=== PATIENT | male | born 1965 | race Caucasian/White ===

== ENCOUNTER 2019-12-07 10:10 | Inpatient (IN) ==
[2019-12-07] MEDS ORDERED: IOPAMIDOL 100 ML BOTTLE IV ONE (10:11)
[2019-12-07] MEDS ORDERED: ONDANSETRON 4 MG/2 ML VIAL IV ONE (10:35)
[2019-12-07] MEDS ORDERED: 0.9 % SODIUM CHLORIDE 1,000 ML IV ONE ×2 (10:35→16:52)
[2019-12-07] MEDS ORDERED: LORazepam 2 MG/ML VIAL IV ONE ×4 (10:35→12:11)
--- NOTE | 2019-12-07 10:42 | Emergency Department Note ---
Alcohol HPI General Chief Complaint: Alcohol Stated Complaint: intoxication Time Seen by Provider: 12/07/19 10:19 Source: other Mode of arrival: wheelchair History of Present Illness HPI Narrative: Narrative: This patient is brought into the emergency room by his [facility] therapist. He apparently has been binge drinking for the last 2 days. Patient is unable to give me much history himself. Therapist says he saw him at the [facility] 2 days ago when he was sober. When he went to his apartment he had empty bottles of vodka and empty cases of beer. Therapist states that the patient has been an alcoholic in the past and was sober for 9 years but then started drinking about 2 weeks ago. He was hospitalized at [facility] 2 weeks ago for decreased level of consciousness and was felt to all be due to alcohol intoxication. At this time the patient is kind of groaning and moving about and not being completely cooperative. Related Data Home Medications Medication Instructions Recorded Confirmed clonidine HCl 0.1 mg PO BID 05/11/15 05/11/15 mirtazapine [Remeron] 60 mg PO DAILY 05/11/15 05/11/15 Allergies Allergy/AdvReac Type Severity Reaction Status Date / Time No Known Drug Allergies Allergy Verified 05/11/15 14:46 Review of Systems ROS ROS Narrative: Narrative: Limitations: ROS unobtainable due to patients medical condition [facility] Narrative Patient History Narrative: Narrative: Medical/Surgical/Family History All Active Problems (Updated 12/07/19 @ 17:28 by Adrian Fernandez MD) Alcoholic intoxication (Acute) Sepsis (Acute) Alcoholism (Acute) Dyspepsia (Acute) Medical History (Updated 12/07/19 @ 17:28 by Adrian Fernandez MD) Alcoholism (Acute) Bipolar disorder (Acute) Depression as late effect of cerebrovascular accident (CVA) (Acute) Dyspepsia (Acute) Hypertriglyceridemia (Acute) PTSD (post-traumatic stress disorder) (Acute) Tonsillectomy planned (Acute) Social History Smoking Status: Current every day smoker Exam Narrative Narrative: Narrative: In general the patient is moaning and groaning in bed. He is restrainable by voice. The patient has been incontinent of urine and I am unable to obtain a history of seizure in this patient. Head Head: atraumatic, normocephalic and normal inspection Eye Eye: Present conjunctival injection ENT ENT: Present mucous membranes moist Chest Chest: Present normal inspection and symmetric chest wall rise Respiratory Respiratory: Present normal lung sounds bilaterally; Absent respiratory distress, rales/crackles and wheezes Cardiovascular Cardiovascular: Present regular rate, normal rhythm and normal heart sounds Adbominal Abdominal: Present soft; Absent distention and tenderness Extremities Extremities: Present normal inspection Skin Skin: Present warm and dry; Absent diaphoresis Course Vital Signs Vital signs: Vital Signs Temperature 97 F 12/07/19 10:10 Pulse Rate 71 12/07/19 10:10 Respiratory Rate 25 H 12/07/19 10:10 Pulse Oximetry (%) 95 12/07/19 10:10 Temperature 97 F 12/07/19 10:10 Pulse Rate 79 12/07/19 16:31 Respiratory Rate 20 12/07/19 13:37 Blood Pressure 93/67 12/07/19 16:31 Pulse Oximetry (%) 90 12/07/19 16:31 MDM MDM Narrative Medical decision making narrative: Narrative: This patient was quite intoxicated when he first arrived also incontinent of urine. He required quite a bit of Ativan for sedation in order to do CT scans. Also gave him 10 mg of Zyprexa IM at one point. His lactic acid came back at 4.8 and so we initiated a septic work-up with blood cultures and covered him with antibiotics. He was given Levaquin doxycycline and vancomycin. His CPK was again elevated over 2600 and this was elevated as well when he was at [facility] a week ago. Creatinine is 1.0. He did receive at least 2 L of normal saline here in the emergency room I discussed the case with Dr. Brown and he will be admitted to the hospital. Lab Data Lab results reviewed: Yes I reviewed the patient's lab results. Result diagrams: 12/07/19 11:18 12/07/19 11:18 Labs: Lab Results 12/07/19 12/07/19 12/07/19 Range/Units 11:18 11:18 11:18 WBC 10.1 (4.50-11.00) K/mcL RBC 4.37 L (4.63-6.08) M/mcL Hgb 13.3 L (13.7-17.5) g/dL Hct 37.7 L (40.1-51.0) % MCV 86.3 (80.0-100.0) fL MCH 30.4 (26.0-34.0) pg MCHC 35.3 (31.0-36.0) g/dL RDW 12.7 (11.5-14.5) % Plt Count 272 (140-440) K/mcL MPV 8.8 (7.4-10.4) fL Gran % 74.2 (38.0-78.0) % Lymph % (Auto) 16.3 (15.5-49.0) % [place] % (Auto) 7.6 (1.0-12.0) % Eos % (Auto) 1.7 (0.0-7.0) % Baso % (Auto) 0.2 (0.0-2.0) % Gran # 7.51 (1.80-8.00) K/mcL Lymph # (Auto) 1.65 (1.50-4.80) K/mcL [place] # (Auto) 0.77 (0.10-0.90) K/mcL Eos # (Auto) 0.17 (0.00-0.70) K/mcL Baso # (Auto) 0.02 (0.00-0.30) K/mcL VBG Lactic Acid 4.8 H* (0.5-2.0) mmol/L Sodium 128 L (133-145) mmol/L Potassium 3.8 (3.3-5.1) mmol/L Chloride 89 L (96-108) mmol/L Carbon Dioxide 17 L (22-30) mmol/L Anion Gap 22.0 H (8-16) BUN 13 (6-20) mg/dl Creatinine 1.0 (0.7-1.2) mg/dl GFR Calculation 84 Glucose 138 H (70-105) mg/dL Calcium 8.9 (8.6-10.4) mg/dl Total Bilirubin 0.5 (0.0-1.0) mg/dL AST 86 H (0-37) U/l ALT 68 H (0-40) U/l Alkaline Phosphatase 88 (39-117) U/L Ammonia (16-60) umol/L Total Creatine Kinase (24-195) IU/L Total Protein 7.1 (5.9-8.4) gm/dL Albumin 4.5 (3.2-5.2) gm/dL Globulin 2.6 (2.2-3.7) gm/dL Albumin/Globulin Ratio 1.7 (1.0-2.3) Lipase 22 (7-60) U/L Urine Color Urine Appearance Urine pH (5.0-9.0) Ur Specific [place] (1.000-1.035) Urine Protein (NEG) mg/dL Urine Glucose (UA) (NEG) mg/dL Urine Ketones (NEG) mg/dL Urine Occult Blood (<0.03) mg/dL Urine Nitrate (NEG) Urine Bilirubin (NEG) mg/dL Urine Urobilinogen (NEG) mg/dL Ur Leukocyte Esterase (NEG) /uL Urine RBC (0-1) /hpf Urine WBC (0-4) /hpf Ur Squamous Epith Cells (0-4) /hpf Urine Bacteria (0) /hpf Ur Culture Indicated? Urine Opiates Screen (NONDETECTED) Ur Oxycodone Screen (NONDETECTED) Urine Methadone Screen (NONDETECTED) Ur Barbiturates Screen (NONDETECTED) Ur Phencyclidine Scrn (NONDETECTED) Ur Amphetamines Screen (NONDETECTED) U Benzodiazepines Scrn (NONDETECTED) Urine Cocaine Screen (NONDETECTED) U Marijuana (THC) Screen (NONDETECTED) Ethyl Alcohol (<0.010) gm/dl 12/07/19 12/07/19 12/07/19 Range/Units 11:18 11:18 12:28 WBC (4.50-11.00) K/mcL RBC (4.63-6.08) M/mcL Hgb (13.7-17.5) g/dL Hct (40.1-51.0) % MCV (80.0-100.0) fL MCH (26.0-34.0) pg MCHC (31.0-36.0) g/dL RDW (11.5-14.5) % Plt Count (140-440) K/mcL MPV (7.4-10.4) fL Gran % (38.0-78.0) % Lymph % (Auto) (15.5-49.0) % [place] % (Auto) (1.0-12.0) % Eos % (Auto) (0.0-7.0) % Baso % (Auto) (0.0-2.0) % Gran # (1.80-8.00) K/mcL Lymph # (Auto) (1.50-4.80) K/mcL [place] # (Auto) (0.10-0.90) K/mcL Eos # (Auto) (0.00-0.70) K/mcL Baso # (Auto) (0.00-0.30) K/mcL VBG Lactic Acid (0.5-2.0) mmol/L Sodium (133-145) mmol/L Potassium (3.3-5.1) mmol/L Chloride (96-108) mmol/L Carbon Dioxide (22-30) mmol/L Anion Gap (8-16) BUN (6-20) mg/dl Creatinine (0.7-1.2) mg/dl GFR Calculation Glucose (70-105) mg/dL Calcium (8.6-10.4) mg/dl Total Bilirubin (0.0-1.0) mg/dL AST (0-37) U/l ALT (0-40) U/l Alkaline Phosphatase (39-117) U/L Ammonia 39 (16-60) umol/L Total Creatine Kinase 2662 H (24-195) IU/L Total Protein (5.9-8.4) gm/dL Albumin (3.2-5.2) gm/dL Globulin (2.2-3.7) gm/dL Albumin/Globulin Ratio (1.0-2.3) Lipase (7-60) U/L Urine Color Urine Appearance Urine pH (5.0-9.0) Ur Specific [place] (1.000-1.035) Urine Protein (NEG) mg/dL Urine Glucose (UA) (NEG) mg/dL Urine Ketones (NEG) mg/dL Urine Occult Blood (<0.03) mg/dL Urine Nitrate (NEG) Urine Bilirubin (NEG) mg/dL Urine Urobilinogen (NEG) mg/dL Ur Leukocyte Esterase (NEG) /uL Urine RBC (0-1) /hpf Urine WBC (0-4) /hpf Ur Squamous Epith Cells (0-4) /hpf Urine Bacteria (0) /hpf Ur Culture Indicated? Urine Opiates Screen (NONDETECTED) Ur Oxycodone Screen (NONDETECTED) Urine Methadone Screen (NONDETECTED) Ur Barbiturates Screen (NONDETECTED) Ur Phencyclidine Scrn (NONDETECTED) Ur Amphetamines Screen (NONDETECTED) U Benzodiazepines Scrn (NONDETECTED) Urine Cocaine Screen (NONDETECTED) U Marijuana (THC) Screen (NONDETECTED) Ethyl Alcohol 0.286 H (<0.010) gm/dl 12/07/19 12/07/19 Range/Units 15:08 15:08 WBC (4.50-11.00) K/mcL RBC (4.63-6.08) M/mcL Hgb (13.7-17.5) g/dL Hct (40.1-51.0) % MCV (80.0-100.0) fL MCH (26.0-34.0) pg MCHC (31.0-36.0) g/dL RDW (11.5-14.5) % Plt Count (140-440) K/mcL MPV (7.4-10.4) fL Gran % (38.0-78.0) % Lymph % (Auto) (15.5-49.0) % [place] % (Auto) (1.0-12.0) % Eos % (Auto) (0.0-7.0) % Baso % (Auto) (0.0-2.0) % Gran # (1.80-8.00) K/mcL Lymph # (Auto) (1.50-4.80) K/mcL [place] # (Auto) (0.10-0.90) K/mcL Eos # (Auto) (0.00-0.70) K/mcL Baso # (Auto) (0.00-0.30) K/mcL VBG Lactic Acid (0.5-2.0) mmol/L Sodium (133-145) mmol/L Potassium (3.3-5.1) mmol/L Chloride (96-108) mmol/L Carbon Dioxide (22-30) mmol/L Anion Gap (8-16) BUN (6-20) mg/dl Creatinine (0.7-1.2) mg/dl GFR Calculation Glucose (70-105) mg/dL Calcium (8.6-10.4) mg/dl Total Bilirubin (0.0-1.0) mg/dL AST (0-37) U/l ALT (0-40) U/l Alkaline Phosphatase (39-117) U/L Ammonia (16-60) umol/L Total Creatine Kinase (24-195) IU/L Total Protein (5.9-8.4) gm/dL Albumin (3.2-5.2) gm/dL Globulin (2.2-3.7) gm/dL Albumin/Globulin Ratio (1.0-2.3) Lipase (7-60) U/L Urine Color Colorless Urine Appearance Clear Urine pH 7.0 (5.0-9.0) Ur Specific [place] 1.003 (1.000-1.035) Urine Protein Neg (NEG) mg/dL Urine Glucose (UA) Negative (NEG) mg/dL Urine Ketones Neg (NEG) mg/dL Urine Occult Blood Neg (<0.03) mg/dL Urine Nitrate Neg (NEG) Urine Bilirubin Neg (NEG) mg/dL Urine Urobilinogen Neg (NEG) mg/dL Ur Leukocyte Esterase Neg (NEG) /uL Urine RBC 0 (0-1) /hpf Urine WBC < 1 (0-4) /hpf Ur Squamous Epith Cells 0 (0-4) /hpf Urine Bacteria 0 (0) /hpf Ur Culture Indicated? No Urine Opiates Screen None detected (NONDETECTED) Ur Oxycodone Screen None detected (NONDETECTED) Urine Methadone Screen None detected (NONDETECTED) Ur Barbiturates Screen None detected (NONDETECTED) Ur Phencyclidine Scrn None detected (NONDETECTED) Ur Amphetamines Screen None detected (NONDETECTED) U Benzodiazepines Scrn None detected (NONDETECTED) Urine Cocaine Screen None detected (NONDETECTED) U Marijuana (THC) Screen None detected (NONDETECTED) Ethyl Alcohol (<0.010) gm/dl Radiology Data Radiology results reviewed: Yes I reviewed the patient's radiology results. Discharge Plan Patient/Caregiver Discharge Instructions Pt seen by DATA TYPIST/PA only: No Clinical Impression: Alcoholism, Alcoholic intoxication, Sepsis Patient Disposition: Xfer As Outpt/Obs ([facility]) Follow up with: No,PCP [Primary Care Provider] - Prescriptions: No Action clonidine HCl 0.1 MG Tablet 0.1 mg PO BID RF: 0 mirtazapine [Remeron] 30 MG Tablet 60 mg PO DAILY RF: 0
[2019-12-07 12:12] LABS: Basophils # (Auto) 0.02 K/mcL (0.00-0.30); Basophils % (Auto) 0.2 % (0.0-2.0); Eosinophils # (Auto) 0.17 K/mcL (0.00-0.70); Eosinophils % (Auto) 1.7 % (0.0-7.0); Granulocytes % (Auto) 74.2 % (38.0-78.0); Hematocrit 37.7 % (40.1-51.0); Hemoglobin 13.3 g/dL (13.7-17.5); Lymphocytes # (Auto) 1.65 K/mcL (1.50-4.80); Lymphocytes % (Auto) 16.3 % (15.5-49.0); Mean Cell Volume 86.3 fL (80.0-100.0); Mean Corpuscular HGB Conc 35.3 g/dL (31.0-36.0); Mean Platelet Volume 8.8 fL (7.4-10.4); Monocytes # (Auto) 0.77 K/mcL (0.10-0.90); Monocytes % (Auto) 7.6 % (1.0-12.0); Platelet Count 272 K/mcL (140-440); RBC 4.37 M/mcL (4.63-6.08); Red Cell Distribution Width 12.7 % (11.5-14.5); WBC 10.1 K/mcL (4.50-11.00)
[2019-12-07 12:25] LABS: Alcohol,Blood 0.286 gm/dl (<0.010)
[2019-12-07 12:32] LABS: ALT/SGPT 68 U/l (0-40); AST/SGOT 86 U/l (0-37); Albumin 4.5 gm/dL (3.2-5.2); Albumin/Globulin Ratio 1.7 (1.0-2.3); Alkaline Phosphatase 88 U/L (39-117); Bilirubin,Total 0.5 mg/dL (0.0-1.0); Blood Urea Nitrogen 13 mg/dl (6-20); Calcium 8.9 mg/dl (8.6-10.4); Carbon Dioxide 17 mmol/L (22-30); Chloride 89 mmol/L (96-108); Globulin 2.6 gm/dL (2.2-3.7); Glomerular Filtration Rate 84; Glucose 138 mg/dL (70-105)
[2019-12-07 12:43] LABS: Creatine Kinase 2662 IU/L (24-195)
[2019-12-07] MEDS ORDERED: OLANZapine 10 MG VIAL IM SCH (12:45)
[2019-12-07] MEDS ORDERED: DOXYCYCLINE 100 MG in DEXTROSE 5% IN WATER 100 ML IV ONE (13:41)
[2019-12-07] MEDS ORDERED: LEVOFLOXACIN 750 MG/150 ML BAG IV ONE (13:41)
[2019-12-07] MEDS ORDERED: VANCOMYCIN 1,000 MG in 0.9 % SODIUM CHLORIDE 250 ML IV ONE (13:41)
--- NOTE | 2019-12-07 14:49 | Cat Scan Report ---
History: Decreased level of consciousness, intoxicated TECHNIQUE: The brain was imaged without contrast at 2.5 mm intervals. Sagittal and coronal reformats were created. The radiation exposure was limited using dose reduction technology. FINDINGS: There is mild to moderate atrophy predominantly involving the frontal lobes with milder involvement in the temporal and parietal lobes. There is no evidence of infarct, hemorrhage, edema or mass effect. The ventricles are normal in size allowing for atrophy. No abnormal extra-axial fluid collection is present. The bone windows show no skull fracture. The visualized sinuses are clear. IMPRESSION: Cerebral atrophy and no acute abnormality Dr. Fernandez was called with the results Interpreted and Authenticated by: Syed Hernandez 12/07/19
--- NOTE | 2019-12-07 15:13 | Cat Scan Report ---
History: Sepsis, evaluate source technique: The patient was imaged following intravenous but no oral contrast scanning during the portal venous phase from the thoracic inlet through the symphysis pubis. Sagittal and coronal reformats were created. The radiation exposure was limited using dose reduction technology. FINDINGS: CHEST: Lungs are clear without evidence of pneumonia or aspiration. Central airways are normal. There is no pleural effusion or adenopathy. The heart size is normal. The aorta is normal in caliber. Degenerative disc disease and arthritis are present in the lower cervical spine. There is a scoliotic curvature with the apex to the left in the upper thoracic spine. Abdomen and pelvis: There is moderate generalized fatty infiltration of liver. The liver is normal in size and homogeneous, without evidence of hepatitis or cirrhosis. The gallbladder and bile ducts are normal. There is no evidence of pancreatitis. The spleen and adrenals are normal in size and homogeneous. Kidneys are normal in size shape and contour and there is no mass, cyst, calculus, hydronephrosis or inflammation. The aorta and inferior vena cava are normal and there are no plaques in the aorta. The bowel pattern is normal without evidence of diverticulitis or colitis. No small bowel obstruction is present. The appendix is noninflamed. No abnormality seen in the bladder prostate or seminal vesicles. No ascites or abscess are present. There are moderate old anterior wedge compression fractures involving the superior endplates of L1 and L2. There is no paraspinal hematoma or edema. Severe spinal canal stenosis is present at L4-5 with moderate spinal canal stenosis at L3-4 due to degenerative changes. IMPRESSION: Normal chest Fatty infiltration of the liver No acute abnormality in the chest abdomen or pelvis Dr. Fernandez was called with the results Interpreted and Authenticated by: Syed Hernandez 12/07/19
[2019-12-07 15:40] LABS: Appearance,Urine CLEAR; Bacteria,Urine 0 /hpf (0); Bilirubin,Urine NEG (NEG); Color,Urine COLORLESS; Culture Indicated,Urine NO; Glucose,Urine (UA) NEGATIVE (NEG); Ketones,Urine NEG (NEG); Leukocyte Esterase,Urine NEG /uL (NEG); Nitrate,Urine NEG (NEG); Protein,Urine NEG (NEG); Specific Gravity,Urine 1.003 (1.000-1.035); Urine Blood NEG mg/dL (<0.03); Urine RBC 0 /hpf (0-1); Urine Squamous Epithelial Cell 0 /hpf (0-4); Urine WBC < 1 /hpf (0-4); Urobilinogen,Urine NEG (NEG)
[2019-12-07 15:45] LABS: Amphetamine Screen,Urine NONE DETECTED (NONDETECTED); Barbiturate Screen,Urine NONE DETECTED (NONDETECTED); Benzodiazepines Screen,Urine NONE DETECTED (NONDETECTED); Cannabinoid Screen,Urine NONE DETECTED (NONDETECTED); Cocaine Screen,Urine NONE DETECTED (NONDETECTED); Opiate Screen,Urine NONE DETECTED (NONDETECTED); Oxycodone, Urine Screen NONE DETECTED (NONDETECTED); Phencyclidine Screen,Urine NONE DETECTED (NONDETECTED)
[2019-12-07] MEDS ORDERED: ONDANSETRON 4 MG/2 ML VIAL IV PRN (17:48)
[2019-12-07] MEDS ORDERED: THIAMINE 100 MG in 0.9 % SODIUM CHLORIDE 50 ML IV ONE (17:56)
[2019-12-07] MEDS ORDERED: LORazepam 2 MG/ML VIAL IV PRN (17:56)
[2019-12-07] MEDS ORDERED: 0.9 % SODIUM CHLORIDE 1,000 ML IV SCH (18:00)
--- NOTE | 2019-12-07 18:36 | Internal Med History&Physical ---
HPI History of Present Illness Patient information: Note initiated : 12/07/19 at 6:05 pm Service Date, if different from initiated Date: [] Patient: Arnaud Umanzor a 54 y/o M admitted on for intoxication. Chief Complaint: [] Chief complaint: Alcohol intoxication History of present illness: Mr. Umanzor is a 54 year old M with a history of occasional alcohol binge who was brought to the ER due to acute alcohol intoxication. As per patient, he drank 36 bottles of beer this morning. He was an alcoholic in the past and had been sober for 9 years but then started drinking about 2 weeks ago. He was hospitalized at [facility] 2 weeks ago for AMS and acute alcohol intoxication. During that time, alcohol level was greater than 300. CT of head and was negative. As per hx from [facility] that the patient lives at home with mother who has a hx of rare binge alcohol. In the ER, CT of the head, chest, abdomen and pelvis were negative. lactic acid 4.8. He was given Levaquin doxycycline and vancomycin. 2L NS was given. When I saw this patient in the ER, he was sleeping in the bed but he woke up when I called him. He seemed to answer questions appropriately. Denied medical complaints. No headache, dizziness, chest pain, shortness of breath, fever, chills, nausea, vomiting, abdominal pain, or dysuria. 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) Dyspepsia (Acute) Hypertriglyceridemia (Acute) PTSD (post-traumatic stress disorder) (Acute) Tonsillectomy planned (Acute) Social History smoking status: Current every day smoker MEDS/ALLERGIES Home Medications and Allergies Home Medications Medication Instructions Recorded Confirmed Type clonidine HCl 0.1 mg PO BID 05/11/15 05/11/15 History mirtazapine [Remeron] 60 mg PO DAILY 05/11/15 05/11/15 History Allergies Allergy/AdvReac Type Severity Reaction Status Date / Time No Known Drug Allergies Allergy Verified 05/11/15 14:46 EXAM Constitutional Vitals: Temp Pulse Resp BP Pulse Ox 97 F 82 20 104/92 97 12/07/19 10:10 12/07/19 17:38 12/07/19 13:37 12/07/19 17:33 12/07/19 17:38 Additional findings Additional findings: General - No acute distress Eyes - PERRLA, EOM intact ENT no rhinorrhea, no noticeable or palpable swelling, no redness or rash around throat or on face Neck supple, no JVD, no thyromegaly Respiratory: Lungs -clear, no wheezing or crackles. Cardiovascular - RRR no m/r/g, GI - Normal bowel sounds, no distended, soft. Extremeties - No edema, cyanosis or clubbing Hemo/lymphatic/immune no lymphadenopathy Neurological Alert and oriented x 3, no focal neurological deficits. Psychiatry flat affect DATA Data Completed and Pending Labs on day of discharge: Labs from last 24 hours 12/07/19 12/07/19 12/07/19 15:08 15:08 12:28 WBC RBC Hgb Hct MCV MCH MCHC RDW Plt Count MPV Gran % Lymph % (Auto) [place] % (Auto) Eos % (Auto) Baso % (Auto) Gran # Lymph # (Auto) [place] # (Auto) Eos # (Auto) Baso # (Auto) VBG Lactic Acid Sodium Potassium Chloride Carbon Dioxide Anion Gap BUN Creatinine GFR Calculation Glucose Calcium Total Bilirubin AST ALT Alkaline Phosphatase Ammonia 39 Total Creatine Kinase Total Protein Albumin Globulin Albumin/Globulin Ratio Lipase Urine Color Colorless Urine Appearance Clear Urine pH 7.0 Ur Specific [place] 1.003 Urine Protein Neg Urine Glucose (UA) Negative Urine Ketones Neg Urine Occult Blood Neg Urine Nitrate Neg Urine Bilirubin Neg Urine Urobilinogen Neg Ur Leukocyte Esterase Neg Urine RBC 0 Urine WBC < 1 Ur Squamous Epith Cells 0 Urine Bacteria 0 Ur Culture Indicated? No Urine Opiates Screen None detected Ur Oxycodone Screen None detected Urine Methadone Screen None detected Ur Barbiturates Screen None detected Ur Phencyclidine Scrn None detected Ur Amphetamines Screen None detected U Benzodiazepines Scrn None detected Urine Cocaine Screen None detected U Marijuana (THC) Screen None detected Ethyl Alcohol 12/07/19 12/07/19 12/07/19 11:18 11:18 11:18 WBC RBC Hgb Hct MCV MCH MCHC RDW Plt Count MPV Gran % Lymph % (Auto) [place] % (Auto) Eos % (Auto) Baso % (Auto) Gran # Lymph # (Auto) [place] # (Auto) Eos # (Auto) Baso # (Auto) VBG Lactic Acid 4.8 H* Sodium Potassium Chloride Carbon Dioxide Anion Gap BUN Creatinine GFR Calculation Glucose Calcium Total Bilirubin AST ALT Alkaline Phosphatase Ammonia Total Creatine Kinase 2662 H Total Protein Albumin Globulin Albumin/Globulin Ratio Lipase Urine Color Urine Appearance Urine pH Ur Specific [place] Urine Protein Urine Glucose (UA) Urine Ketones Urine Occult Blood Urine Nitrate Urine Bilirubin Urine Urobilinogen Ur Leukocyte Esterase Urine RBC Urine WBC Ur Squamous Epith Cells Urine Bacteria Ur Culture Indicated? Urine Opiates Screen Ur Oxycodone Screen Urine Methadone Screen Ur Barbiturates Screen Ur Phencyclidine Scrn Ur Amphetamines Screen U Benzodiazepines Scrn Urine Cocaine Screen U Marijuana (THC) Screen Ethyl Alcohol 0.286 H 12/07/19 12/07/19 11:18 11:18 WBC 10.1 RBC 4.37 L Hgb 13.3 L Hct 37.7 L MCV 86.3 MCH 30.4 MCHC 35.3 RDW 12.7 Plt Count 272 MPV 8.8 Gran % 74.2 Lymph % (Auto) 16.3 [place] % (Auto) 7.6 Eos % (Auto) 1.7 Baso % (Auto) 0.2 Gran # 7.51 Lymph # (Auto) 1.65 [place] # (Auto) 0.77 Eos # (Auto) 0.17 Baso # (Auto) 0.02 VBG Lactic Acid Sodium 128 L Potassium 3.8 Chloride 89 L Carbon Dioxide 17 L Anion Gap 22.0 H BUN 13 Creatinine 1.0 GFR Calculation 84 Glucose 138 H Calcium 8.9 Total Bilirubin 0.5 AST 86 H ALT 68 H Alkaline Phosphatase 88 Ammonia Total Creatine Kinase Total Protein 7.1 Albumin 4.5 Globulin 2.6 Albumin/Globulin Ratio 1.7 Lipase 22 Urine Color Urine Appearance Urine pH Ur Specific [place] Urine Protein Urine Glucose (UA) Urine Ketones Urine Occult Blood Urine Nitrate Urine Bilirubin Urine Urobilinogen Ur Leukocyte Esterase Urine RBC Urine WBC Ur Squamous Epith Cells Urine Bacteria Ur Culture Indicated? Urine Opiates Screen Ur Oxycodone Screen Urine Methadone Screen Ur Barbiturates Screen Ur Phencyclidine Scrn Ur Amphetamines Screen U Benzodiazepines Scrn Urine Cocaine Screen U Marijuana (THC) Screen Ethyl Alcohol A/P Narrative A/P Narrative: 1. Acute alcoholic intoxication Had been sober for 9 years lives at home with mother who has a hx of rare binge alcohol No hx of DT In the ER, alcohol level was 0.286 Thiamine, folic acid IVF Ativan prn will initiate CIWA protocol if needed solutions manager consult 2. AMS improved/resolved Most likely due to acute alcoholic intoxication. CT of head negative 3. Rhabdomyelitis/elevation of CK CK in the ER 2662 He was admitted to [facility] for similar problem. At that time, CK was 3400. Normal renal function Repeat CK in the morning IV fluid 4. Psychosis History include bipolar disorder, depression, PTSD, and anxiety Denies suicidal ideation Continue home medication 5. Dehydration IV fluid 6. Hyponatremia Sodium 128 in the ER IV normal saline Repeat electrolytes 7. Elevation of Lactic acid Could be due to dehydration or alcohol intoxication No evidence of infection Antibiotics was given in the ER Procalcitonin Monitor 8. DVT prophylaxis: Lovenox 9. CODE STATUS: DNR/DNI Patient declined CPR and intubation. Time Spent With Patient Time: Total time spent is greater than 50% in coordination of care (as documented) at patient's floor/unit and/or counseling patient:
[2019-12-07] MEDS ORDERED: LACTATED RINGERS 1,000 ML IV SCH (18:45)
[2019-12-07] MEDS ORDERED: THIAMINE 100 MG/ML VIAL ONE (18:50)
[2019-12-07 19:37] LABS: Phosphorous 2.9 mg/dL (2.7-4.5)
[2019-12-07 19:39] LABS: proBNP < 50.0 pg/ml (0-125)
[2019-12-07 19:40] LABS: Blood Urea Nitrogen 10 mg/dl (6-20); Calcium 8.8 mg/dl (8.6-10.4); Carbon Dioxide 19 mmol/L (22-30); Glomerular Filtration Rate 75; Glucose 97 mg/dL (70-105)
[2019-12-07 19:48] LABS: Chloride 99 mmol/L (96-108)
[2019-12-07] MEDS ORDERED: ATENOLOL 25 MG TABLET PO SCH (21:00)
[2019-12-07] MEDS: DOCUSATE SODIUM 100 MG CAPSULE PO SCH (21:25)
[2019-12-07] MEDS: 0.9 % SODIUM CHLORIDE 10 ML SYRINGE IV SCH (22:25)
[2019-12-07] MEDS: cloNIDine HCL 0.1 MG TABLET PO SCH (23:21)
[2019-12-08] MEDS ORDERED: DEXTROSE 5% IN WATER 1,000 ML IV SCH ×2 (01:00→08:23)
[2019-12-08] MEDS ORDERED: METOPROLOL TARTRATE 5 MG/5 ML VIAL IV ONE ×2 (04:25→04:37)
[2019-12-08] MEDS: METOPROLOL TARTRATE 25 MG TABLET PO SCH ×3 (04:51→19:58)
[2019-12-08] MEDS ORDERED: METOPROLOL TARTRATE 25 MG TABLET ONE (04:55)
[2019-12-08] MEDS: 0.9 % SODIUM CHLORIDE 10 ML SYRINGE IV SCH ×3 (05:57→23:29)
[2019-12-08 06:38] LABS: Basophils # (Auto) 0.02 K/mcL (0.00-0.30); Basophils % (Auto) 0.4 % (0.0-2.0); Eosinophils # (Auto) 0.01 K/mcL (0.00-0.70); Eosinophils % (Auto) 0.2 % (0.0-7.0); Granulocytes % (Auto) 60.4 % (38.0-78.0); Hematocrit 37.2 % (40.1-51.0); Hemoglobin 12.9 g/dL (13.7-17.5); Lymphocytes # (Auto) 1.72 K/mcL (1.50-4.80); Lymphocytes % (Auto) 30.2 % (15.5-49.0); Mean Cell Volume 87.1 fL (80.0-100.0); Mean Corpuscular HGB Conc 34.7 g/dL (31.0-36.0); Monocytes % (Auto) 8.8 % (1.0-12.0); Platelet Count 224 K/mcL (140-440); RBC 4.27 M/mcL (4.63-6.08); Red Cell Distribution Width 13.2 % (11.5-14.5); WBC 5.7 K/mcL (4.50-11.00)
[2019-12-08 07:05] LABS: ALT/SGPT 58 U/l (0-40); AST/SGOT 72 U/l (0-37); Albumin/Globulin Ratio 1.8 (1.0-2.3); Alkaline Phosphatase 82 U/L (39-117); Bilirubin,Total 0.5 mg/dL (0.0-1.0); Blood Urea Nitrogen 11 mg/dl (6-20); Carbon Dioxide 20 mmol/L (22-30); Chloride 102 mmol/L (96-108); Globulin 2.2 gm/dL (2.2-3.7); Glomerular Filtration Rate 67; Glucose 113 mg/dL (70-105)
[2019-12-08 07:10] LABS: Creatine Kinase 1733 IU/L (24-195)
[2019-12-08] MEDS ORDERED: DESMOPRESSIN ACETATE 2 MCG in 0.9 % SODIUM CHLORIDE 50 ML IV ONE (08:17)
[2019-12-08] MEDS: THIAMINE 100 MG TABLET PO SCH (10:42)
[2019-12-08] MEDS: FOLIC ACID/VITAMIN B COMP W-C 1 TAB TABLET PO SCH (10:42)
[2019-12-08] MEDS: DOCUSATE SODIUM 100 MG CAPSULE PO SCH ×2 (10:42→19:58)
[2019-12-08] MEDS: ENOXAPARIN 40 MG/0.4 ML SYRINGE SQ SCH (10:42)
[2019-12-08] MEDS: cloNIDine HCL 0.1 MG TABLET PO SCH ×2 (10:42→19:58)
[2019-12-08] MEDS: DEXTROSE 5% IN WATER 1,000 ML IV SCH ×2 (11:06→15:23)
--- NOTE | 2019-12-08 14:56 | Internal Med Progress Note ---
SUBJECTIVE Subjective Patient information: Note initiated : 12/08/19 at 2:45 pm Service Date, if different from initiated Date: [] Patient: Arnaud Umanzor 54 y/o M admitted on 12/07/19 for intoxication. Chief Complaint: [] Interval history: Mr. Umanzor is a 54 year old M with a history of occasional alcohol binge who was brought to the ER due to acute alcohol intoxication. As per patient, he drank 36 bottles of beer this morning. He was an alcoholic in the past and had been sober for 9 years but then started drinking about 2 weeks ago. He was hospitalized at [facility] 2 weeks ago for AMS and acute alcohol intoxication. During that time, alcohol level was greater than 300. CT of head and was negative. As per hx from [facility] that the patient lives at home with mother who has a hx of rare binge alcohol. In the ER, CT of the head, chest, abdomen and pelvis were negative. lactic acid 4.8. He was given Levaquin doxycycline and vancomycin. 2L NS was given. When I saw this patient in the ER, he was sleeping in the bed but he woke up when I called him. He seemed to answer questions appropriately. Denied medical complaints. No headache, dizziness, chest pain, shortness of breath, fever, chills, nausea, vomiting, abdominal pain, or dysuria. 12/07 Patient feels much better today. Denies nausea, vomiting, Hydrea, dizziness, shortness of breath, chest pain, abdominal pain, or dysuria. But last night patient developed atrial fibrillation with RVR. Metoprolol was given. His rhythm came back to sinus but heart rate is still around 100. Otherwise vital signs are stable. Constitutional Vitals: Vital Signs Temp Pulse Resp BP Pulse Ox 97.7 F 98 H 16 130/87 96 12/08/19 08:00 12/08/19 12:30 12/08/19 08:00 12/08/19 12:30 12/08/19 12:30 Period Temp Pulse Resp BP Sys/Del Rosario Pulse Ox Last 24 Hr 97 F-98.7 F 58-98 - 89-151/53-97 90-99 Intake and Output 12/08/19 12/08/19 12/08/19 05:59 13:59 21:59 Intake Total 260 480 Output Total 950 300 Balance -690 -300 480 Intake & Output: Intake & Output 12/08/19 12/08/19 12/08/19 05:59 13:59 21:59 Intake Total 260 480 Output Total 950 300 Balance -690 -300 480 Intake: IV 260 Lactated Ringers 1,000 ml @ 100 260 mls/hr IV .Q10H LO Rx#: [id number] Oral 480 Output: Void Amount 950 300 Other: Meal Lunch Percent of Meal Consumed 100% Urine Appearance Clear Urine Color Pale Additional findings Additional findings: General - No acute distress Eyes - PERRLA, EOM intact ENT no rhinorrhea, no noticeable or palpable swelling, no redness or rash around throat or on face Neck supple, no JVD, no thyromegaly Respiratory: Lungs -clear, no wheezing or crackles. Cardiovascular - RRR no m/r/g, GI - Normal bowel sounds, no distended, soft. Extremeties - No edema, cyanosis or clubbing Hemo/lymphatic/immune no lymphadenopathy Neurological Alert and oriented x 3, no focal neurological deficits. Psychiatry flat affect OBJ DATA Labs CBC & Chem 7: 12/08/19 05:30 12/08/19 05:30 Labs: Abnormal Lab Results 12/08/19 12/08/19 12/07/19 05:30 05:30 18:30 RBC 4.27 L Hgb 12.9 L Hct 37.2 L VBG Lactic Acid Sodium Chloride Carbon Dioxide 20 L 19 L Anion Gap 18.0 H Glucose 113 H AST 72 H ALT 58 H Total Creatine Kinase 1733 H Ethyl Alcohol 12/07/19 12/07/19 12/07/19 18:30 11:18 11:18 RBC Hgb Hct VBG Lactic Acid 3.2 H Sodium Chloride Carbon Dioxide Anion Gap Glucose AST ALT Total Creatine Kinase 2662 H Ethyl Alcohol 0.286 H 12/07/19 12/07/19 12/07/19 11:18 11:18 11:18 RBC 4.37 L Hgb 13.3 L Hct 37.7 L VBG Lactic Acid 4.8 H* Sodium 128 L Chloride 89 L Carbon Dioxide 17 L Anion Gap 22.0 H Glucose 138 H AST 86 H ALT 68 H Total Creatine Kinase Ethyl Alcohol Meds: Medications Clonidine HCl (Catapres) 0.2 mg PO BID [facility] Last Admin: 12/08/19 10:42 Dose: 0.2 mg Documented by: Docusate Sodium (Colace) 100 mg PO BID [facility] Last Admin: 12/08/19 10:42 Dose: 100 mg Documented by: Enoxaparin Sodium (Lovenox) 40 mg SQ DAILY [facility] Last Admin: 12/08/19 10:42 Dose: 40 mg Documented by: Dextrose (Dextrose 5% In Water) 1,000 mls @ 125 mls/hr IV .Q8H [facility] Last Admin: 12/08/19 11:06 Dose: Not Given Documented by: Lorazepam (Ativan) 0.5 mg IV Q4HP PRN PRN Reason: ANXIETY/SEDATION Metoprolol Tartrate (Lopressor) 12.5 mg PO BID [facility] Last Admin: 12/08/19 10:43 Dose: Not Given Documented by: Multivit/Ca Carb/B Cmplx/FA/Prenat (Diatx) 1 tab PO DAILY [facility] Last Admin: 12/08/19 10:42 Dose: 1 tab Documented by: Ondansetron HCl (Zofran) 4 mg IV Q6HP PRN PRN Reason: Nausea And Vomiting Last Admin: 12/08/19 07:32 Dose: 4 mg Documented by: Sodium Chloride (Saline Flush) 10 ml IV Q8 [facility] Last Admin: 12/08/19 14:22 Dose: Not Given Documented by: Thiamine HCl (Vitamin B1) 100 mg PO DAILY [facility] Last Admin: 12/08/19 10:42 Dose: 100 mg Documented by: A/P Narrative A/P Narrative: 1. Acute alcoholic intoxication Had been sober for 9 years lives at home with mother who has a hx of rare binge alcohol No hx of DT In the ER, alcohol level was 0.286 Thiamine, folic acid IVF Ativan prn will initiate CIWA protocol if needed rent control office manager consult 2. AMS resolved Most likely due to acute alcoholic intoxication. CT of head negative 3. Rhabdomyelitis/elevation of CK CK in the ER 2662, trending down He was admitted to [facility] for similar problem. At that time, CK was 3400. Normal renal function Repeat CK in the morning IV fluid 4. Psychosis History include bipolar disorder, depression, PTSD, and anxiety Denies suicidal ideation Continue home medication 5. Dehydration IV fluid 6. Hyponatremia Sodium 128 in the ER. He received NS 2L in the ER. His Na went up to 136. Discontinued IV normal saline D5 125ml/hr. DDAVP 2mg iv once Repeat Na 7. Elevation of Lactic acid Could be due to dehydration or alcohol intoxication No evidence of infection Antibiotics was given in the ER Procalcitonin Monitor 8. Atrial fibrillation with RVR Denies hx of atrial fib in the past Came back to sinus Metoprolol 12.5mg bid Metoprolol 2.5mg iv prn discontinue atenolol 9. DVT prophylaxis: Lovenox 10. CODE STATUS: DNR/DNI Patient declined CPR and intubation. Deposition: Pt would like to go back to his apartment. His friend will stay with him for days. He will go for an inpatient alcohol withdrawal program in [place]. Time Spent With Patient Time: Total time spent is greater than 50% in coordination of care (as documented) at patient's floor/unit and/or counseling patient: QUALITY VTE Deep Vein Thrombosis/Pulmonary Embolism Present on Admission: No
[2019-12-08 16:52] LABS: Blood Urea Nitrogen 13 mg/dl (6-20); Calcium 9.2 mg/dl (8.6-10.4); Carbon Dioxide 22 mmol/L (22-30); Chloride 96 mmol/L (96-108); Glomerular Filtration Rate 61; Glucose 136 mg/dL (70-105)
[2019-12-08] MEDS ORDERED: MELATONIN 3 MG TABLET PO PRN (17:23)
[2019-12-08] MEDS: MIRTAZAPINE 15 MG TABLET PO SCH (21:42)
[2019-12-09 06:13] LABS: Basophils # (Auto) 0.03 K/mcL (0.00-0.30); Basophils % (Auto) 0.6 % (0.0-2.0); Eosinophils # (Auto) 0.07 K/mcL (0.00-0.70); Eosinophils % (Auto) 1.4 % (0.0-7.0); Hematocrit 35.9 % (40.1-51.0); Lymphocytes # (Auto) 2.29 K/mcL (1.50-4.80); Lymphocytes % (Auto) 45.3 % (15.5-49.0); Mean Cell Volume 91.3 fL (80.0-100.0); Mean Corpuscular HGB Conc 33.4 g/dL (31.0-36.0); Mean Platelet Volume 9.4 fL (7.4-10.4); Monocytes # (Auto) 0.34 K/mcL (0.10-0.90); Monocytes % (Auto) 6.7 % (1.0-12.0); Platelet Count 191 K/mcL (140-440); RBC 3.93 M/mcL (4.63-6.08); Red Cell Distribution Width 13.3 % (11.5-14.5); WBC 5.1 K/mcL (4.50-11.00)
[2019-12-09] MEDS: 0.9 % SODIUM CHLORIDE 10 ML SYRINGE IV SCH ×3 (06:17→22:16)
[2019-12-09 06:25] LABS: ALT/SGPT 47 U/l (0-40); AST/SGOT 45 U/l (0-37); Albumin 3.7 gm/dL (3.2-5.2); Albumin/Globulin Ratio 1.9 (1.0-2.3); Alkaline Phosphatase 70 U/L (39-117); Bilirubin,Total 0.3 mg/dL (0.0-1.0); Blood Urea Nitrogen 14 mg/dl (6-20); Calcium 8.6 mg/dl (8.6-10.4); Carbon Dioxide 22 mmol/L (22-30); Chloride 103 mmol/L (96-108); Glomerular Filtration Rate 75; Glucose 112 mg/dL (70-105)
[2019-12-09] MEDS: FOLIC ACID/VITAMIN B COMP W-C 1 TAB TABLET PO SCH (09:20)
[2019-12-09] MEDS: THIAMINE 100 MG TABLET PO SCH (09:21)
[2019-12-09] MEDS: ENOXAPARIN 40 MG/0.4 ML SYRINGE SQ SCH (09:21)
[2019-12-09] MEDS: METOPROLOL TARTRATE 25 MG TABLET PO SCH ×2 (09:21→21:45)
[2019-12-09] MEDS: cloNIDine HCL 0.1 MG TABLET PO SCH ×2 (09:21→21:45)
[2019-12-09] MEDS: DOCUSATE SODIUM 100 MG CAPSULE PO SCH ×2 (09:21→21:45)
[2019-12-09] MEDS: 0.45 % SODIUM CHLORIDE 1,000 ML IV SCH ×2 (09:21→22:14)
--- NOTE | 2019-12-09 15:43 | Internal Med Progress Note ---
SUBJECTIVE Subjective Patient information: Note initiated : 12/09/19 at 3:43 pm Service Date, if different from initiated Date: [] Patient: Arnaud Umanzor 54 y/o M admitted on 12/07/19 for intoxication. Chief Complaint: [] Interval history: Mr. Umanzor is a 54 year old M with a history of occasional alcohol binge who was brought to the ER due to acute alcohol intoxication. As per patient, he drank 36 bottles of beer this morning. He was an alcoholic in the past and had been sober for 9 years but then started drinking about 2 weeks ago. He was hospitalized at [facility] 2 weeks ago for AMS and acute alcohol intoxication. During that time, alcohol level was greater than 300. CT of head and was negative. As per hx from [facility] that the patient lives at home with mother who has a hx of rare binge alcohol. In the ER, CT of the head, chest, abdomen and pelvis were negative. lactic acid 4.8. He was given Levaquin doxycycline and vancomycin. 2L NS was given. When I saw this patient in the ER, he was sleeping in the bed but he woke up when I called him. He seemed to answer questions appropriately. Denied medical complaints. No headache, dizziness, chest pain, shortness of breath, fever, chills, nausea, vomiting, abdominal pain, or dysuria. 12/07 Patient feels much better today. Denies nausea, vomiting, Hydrea, dizziness, shortness of breath, chest pain, abdominal pain, or dysuria. But last night patient developed atrial fibrillation with RVR. Metoprolol was given. His rhythm came back to sinus but heart rate is still around 100. Otherwise vital signs are stable. 12/08 Patient feels very fine and does not have any complaints. He denies headache, dizziness, nausea, or vomiting. Heart rate is controlled. Patient initially was a scheduled to be discharged today. However, as per PT, he is still demonstrating a very unsteady, uncoordinated gait pattern and easily gets lightheadedness. Patient will be kept in the hospital for 1 more night. Review of Systems All systems: reviewed and no additional remarkable complaints except as stated Constitutional Vitals: Vital Signs Temp Pulse Resp BP Pulse Ox 97.8 F 86 16 116/76 96 12/09/19 12:00 12/09/19 12:00 12/09/19 12:00 12/09/19 12:00 12/09/19 08:00 Period Temp Pulse Resp BP Sys/Del Rosario Pulse Ox Last 24 Hr 97.8 F-98.8 F 81-86 16-16 101-137/76-98 96-97 Intake and Output 12/09/19 12/09/19 12/09/19 05:59 13:59 21:59 Intake Total 840 2290.5 Output Total 250 800 Balance 590 1490.5 Weight 126.507 kg Patient Weight 12/10/19 05:59 Weight 126.507 kg Intake & Output: Intake & Output 12/09/19 12/09/19 12/09/19 05:59 13:59 21:59 Intake Total 840 2290.5 Output Total 250 800 Balance 590 1490.5 Weight 126.507 kg Intake: IV 2050.5 Ddavp 2 Mcg In Sodium Chloride 50.5 0.9% 50 ml @ 200 mls/hr IV ONCE ONE Rx#:[id number] Dextrose 5% in Water 1,000 ml @ 2000 75 mls/hr IV .[id number] [facility] Rx#: [id number] Oral 840 240 Output: Void Amount 250 800 Other: Meal Snack Breakfast Percent of Meal Consumed 100% 100% Feeding Ability Independent Stool Size Large Stool Color Brown Stool Consistency Soft Formed # Bowel Movements 1 Additional findings Additional findings: General - No acute distress Eyes - PERRLA, EOM intact ENT no rhinorrhea, no noticeable or palpable swelling, no redness or rash around throat or on face Neck supple, no JVD, no thyromegaly Respiratory: Lungs -clear, no wheezing or crackles. Cardiovascular - RRR no m/r/g, GI - Normal bowel sounds, no distended, soft. Extremeties - No edema, cyanosis or clubbing Hemo/lymphatic/immune no lymphadenopathy Neurological Alert and oriented x 3, no focal neurological deficits. Psychiatry flat affect OBJ DATA Labs CBC & Chem 7: 12/09/19 04:15 12/09/19 04:15 Labs: Abnormal Lab Results 12/09/19 12/09/19 12/08/19 04:15 04:15 13:55 RBC 3.93 L Hgb 12.0 L Hct 35.9 L VBG Lactic Acid Sodium Chloride Carbon Dioxide Anion Gap Creatinine 1.3 H Glucose 112 H 136 H AST 45 H ALT 47 H Total Creatine Kinase Total Protein 5.7 L Globulin 2.0 L Ethyl Alcohol 12/08/19 12/08/19 12/07/19 05:30 05:30 18:30 RBC 4.27 L Hgb 12.9 L Hct 37.2 L VBG Lactic Acid Sodium Chloride Carbon Dioxide 20 L 19 L Anion Gap 18.0 H Creatinine Glucose 113 H AST 72 H ALT 58 H Total Creatine Kinase 1733 H Total Protein Globulin Ethyl Alcohol 12/07/19 12/07/19 12/07/19 18:30 11:18 11:18 RBC Hgb Hct VBG Lactic Acid 3.2 H Sodium Chloride Carbon Dioxide Anion Gap Creatinine Glucose AST ALT Total Creatine Kinase 2662 H Total Protein Globulin Ethyl Alcohol 0.286 H 12/07/19 12/07/19 12/07/19 11:18 11:18 11:18 RBC 4.37 L Hgb 13.3 L Hct 37.7 L VBG Lactic Acid 4.8 H* Sodium 128 L Chloride 89 L Carbon Dioxide 17 L Anion Gap 22.0 H Creatinine Glucose 138 H AST 86 H ALT 68 H Total Creatine Kinase Total Protein Globulin Ethyl Alcohol Meds: Medications Clonidine HCl (Catapres) 0.2 mg PO BID [facility] Last Admin: 12/09/19 09:21 Dose: 0.2 mg Documented by: Docusate Sodium (Colace) 100 mg PO BID [facility] Last Admin: 12/09/19 09:21 Dose: 100 mg Documented by: Enoxaparin Sodium (Lovenox) 40 mg SQ DAILY [facility] Last Admin: 12/09/19 09:21 Dose: 40 mg Documented by: Sodium Chloride (Sodium Chloride 0.45%) 1,000 mls @ 75 mls/hr IV .[id number] [facility] Last Admin: 12/09/19 09:21 Dose: 75 mls/hr Documented by: Lorazepam (Ativan) 0.5 mg IV Q4HP PRN PRN Reason: ANXIETY/SEDATION Melatonin (Melatonin 3mg Tablet) 3 mg PO HSP PRN PRN Reason: Insomnia Metoprolol Tartrate (Lopressor) 12.5 mg PO BID [facility] Last Admin: 12/09/19 09:21 Dose: 12.5 mg Documented by: Mirtazapine (Remeron) 45 mg PO HS [facility] Last Admin: 12/08/19 21:42 Dose: 45 mg Documented by: Multivit/Ca Carb/B Cmplx/FA/Prenat (Diatx) 1 tab PO DAILY [facility] Last Admin: 12/09/19 09:20 Dose: 1 tab Documented by: Ondansetron HCl (Zofran) 4 mg IV Q6HP PRN PRN Reason: Nausea And Vomiting Last Admin: 12/08/19 07:32 Dose: 4 mg Documented by: Sodium Chloride (Saline Flush) 10 ml IV Q8 [facility] Last Admin: 12/09/19 06:17 Dose: 10 ml Documented by: Thiamine HCl (Vitamin B1) 100 mg PO DAILY [facility] Last Admin: 12/09/19 09:21 Dose: 100 mg Documented by: A/P Narrative A/P Narrative: 1. Acute alcoholic intoxication Had been sober for 9 years lives in an apartment. hx of rare binge alcohol No hx of DT In the ER, alcohol level was 0.286 Thiamine, folic acid IVF Ativan prn will initiate CIWA protocol if needed manager auto is on board 2. AMS resolved Most likely due to acute alcoholic intoxication. CT of head negative 3. Rhabdomyelitis/elevation of CK CK in the ER 2662, trending down He was admitted to [facility] for similar problem. At that time, CK was 3400. Normal renal function Repeat CK in the morning IV fluid 4. Psychosis History include bipolar disorder, depression, PTSD, and anxiety Denies suicidal ideation Continue home medication 5. Dehydration resolved IV fluid 6. Hyponatremia resolved Repeat Na in am 7. Elevation of Lactic acid resolved Could be due to dehydration or alcohol intoxication No evidence of infection Antibiotics was given in the ER Monitor 8. Atrial fibrillation with RVR Denies hx of atrial fib in the past Came back to sinus Metoprolol 12.5mg bid Metoprolol 2.5mg iv prn discontinue atenolol Discussed anticoagulation with patient who would like to discuss with his [facility] physicians. He does not want to start anticoagulation now. 9. DVT prophylaxis: Lovenox 10. CODE STATUS: DNR/DNI Patient declined CPR and intubation. Deposition: Pt would like to go back to his apartment. His friend will stay with him and supported him until he leaves for an inpatient alcohol withdrawal program in [place]. Time Spent With Patient Time: Total time spent is greater than 50% in coordination of care (as docu mented) at patient's floor/unit and/or counseling patient: QUALITY VTE Deep Vein Thrombosis/Pulmonary Embolism Present on Admission: No
[2019-12-09] MEDS: MIRTAZAPINE 15 MG TABLET PO SCH (21:45)
[2019-12-10 06:25] LABS: Basophils # (Auto) 0.04 K/mcL (0.00-0.30); Basophils % (Auto) 0.7 % (0.0-2.0); Eosinophils # (Auto) 0.12 K/mcL (0.00-0.70); Eosinophils % (Auto) 2.1 % (0.0-7.0); Hematocrit 36.5 % (40.1-51.0); Lymphocytes # (Auto) 2.31 K/mcL (1.50-4.80); Lymphocytes % (Auto) 40.5 % (15.5-49.0); Mean Cell Volume 91.9 fL (80.0-100.0); Mean Corpuscular HGB Conc 32.9 g/dL (31.0-36.0); Mean Platelet Volume 9.4 fL (7.4-10.4); Monocytes # (Auto) 0.38 K/mcL (0.10-0.90); Monocytes % (Auto) 6.7 % (1.0-12.0); Platelet Count 187 K/mcL (140-440); RBC 3.97 M/mcL (4.63-6.08); Red Cell Distribution Width 13.6 % (11.5-14.5); WBC 5.7 K/mcL (4.50-11.00)
[2019-12-10 06:45] LABS: ALT/SGPT 46 U/l (0-40); AST/SGOT 36 U/l (0-37); Albumin 3.6 gm/dL (3.2-5.2); Albumin/Globulin Ratio 1.7 (1.0-2.3); Alkaline Phosphatase 70 U/L (39-117); Bilirubin,Total 0.3 mg/dL (0.0-1.0); Blood Urea Nitrogen 14 mg/dl (6-20); Calcium 8.8 mg/dl (8.6-10.4); Carbon Dioxide 22 mmol/L (22-30); Chloride 106 mmol/L (96-108); Globulin 2.1 gm/dL (2.2-3.7); Glomerular Filtration Rate 84; Glucose 111 mg/dL (70-105)
[2019-12-10] MEDS ORDERED: hydrALAZINE 20 MG/ML VIAL IV PRN (08:04)
[2019-12-10] MEDS ORDERED: amLODIPine 5 MG TABLET PO SCH (09:00)
[2019-12-10] MEDS: 0.9 % SODIUM CHLORIDE 10 ML SYRINGE IV SCH (09:08)
[2019-12-10] MEDS: METOPROLOL TARTRATE 25 MG TABLET PO SCH (09:14)
[2019-12-10] MEDS: cloNIDine HCL 0.1 MG TABLET PO SCH (09:14)
[2019-12-10] MEDS: ENOXAPARIN 40 MG/0.4 ML SYRINGE SQ SCH (09:14)
[2019-12-10] MEDS: THIAMINE 100 MG TABLET PO SCH (09:15)
[2019-12-10] MEDS: FOLIC ACID/VITAMIN B COMP W-C 1 TAB TABLET PO SCH (09:16)
[2019-12-10] MEDS: DOCUSATE SODIUM 100 MG CAPSULE PO SCH (09:16)
--- NOTE | 2019-12-10 11:30 | Discharge Summary ---
Discharge Provider Provider Patient information: Note initiated : 12/10/19 at 11:21 am Service Date, if different from initiated Date: [] Patient: Arnaud Umanzor 54 y/o M admitted on 12/07/19 for intoxication. Chief Complaint: [] Date of admission: 12/07/19 18:27 Discharge date: 12/10/19 Primary care physician: PCP No Consults: 12/07/19 16:52 Consult to Physician [CONS] Stat Comment: Consulting Provider: Loree Vaca Reason For Exam: Physician to Consult Discharge Meds Discharge Medications Home Medications clonidine HCl 0.1 mg PO BID 05/11/15 [History Confirmed 12/09/19 Last Taken 12/06/19] melatonin 3 mg PO HS PRN 12/08/19 [History Confirmed 12/08/19 Last Taken 12/06/19 21:00] mirtazapine 45 mg PO QHS 12/08/19 [History Confirmed 12/08/19 Last Taken 12/06/19 21:00] B complex-vitamin C-folic acid [Folbee Plus] 1 tab PO DAILY #30 tab 12/10/19 [Rx Last Taken Unknown] amlodipine 2.5 mg PO DAILY #30 tab 12/10/19 [Rx Last Taken Unknown] metoprolol tartrate 12.5 mg PO BID #60 tab 12/10/19 [Rx Last Taken Unknown] thiamine mononitrate (vit B1) 100 mg PO DAILY #30 tab 12/10/19 [Rx Last Taken Unknown] COURSE Hospital Course Hospital course: 1. Acute alcoholic intoxication resolved Had been sober for 9 years lives in an apartment. hx of rare binge alcohol No hx of DT In the ER, alcohol level was 0.286 Thiamine, folic acid IVF Ativan prn will initiate CIWA protocol if needed maintenance department manager is on board 2. AMS resolved Most likely due to acute alcoholic intoxication. CT of head negative 3. Rhabdomyelitis/elevation of CK CK in the ER 2662, trending down He was admitted to [facility] for similar problem. At that time, CK was 3400. Normal renal function Repeat CK in the morning IV fluid 4. Psychosis History include bipolar disorder, depression, PTSD, and anxiety Denies suicidal ideation Continue home medication 5. Dehydration resolved IV fluid 6. Hyponatremia resolved Repeat Na in am 7. Elevation of Lactic acid resolved Could be due to dehydration or alcohol intoxication No evidence of infection Antibiotics was given in the ER Monitor 8. Atrial fibrillation with RVR HR controlled Denies hx of atrial fib in the past Came back to sinus Metoprolol 12.5mg bid Metoprolol 2.5mg iv prn discontinue atenolol Discussed anticoagulation with patient who would like to discuss with his [facility] physicians. He does not want to start anticoagulation now. Interval history: Mr. Umanzor is a 54 year old M with a history of occasional alcohol binge who was brought to the ER due to acute alcohol intoxication. As per patient, he drank 36 bottles of beer this morning. He was an alcoholic in the past and had been sober for 9 years but then started drinking about 2 weeks ago. He was hospitalized at [facility] 2 weeks ago for AMS and acute alcohol intoxication. During that time, alcohol level was greater than 300. CT of head and was negative. As per h[facility] that the patient lives at home with mother who has a hx of rare binge alcohol. In the ER, CT of the head, chest, abdomen and pelvis were negative. lactic acid 4.8. He was given Levaquin doxycycline and vancomycin. 2L NS was given. When I saw this patient in the ER, he was sleeping in the bed but he woke up when I called him. He seemed to answer questions appropriately. Denied medical complaints. No headache, dizziness, chest pain, shortness of breath, fever, chills, nausea, vomiting, abdominal pain, or dysuria. 12/07 Patient feels much better today. Denies nausea, vomiting, Hydrea, dizziness, shortness of breath, chest pain, abdominal pain, or dysuria. But last night patient developed atrial fibrillation with RVR. Metoprolol was given. His rhythm came back to sinus but heart rate is still around 100. Otherwise vital signs are stable. 12/08 Patient feels very fine and does not have any complaints. He denies headache, dizziness, nausea, or vomiting. Heart rate is controlled. Patient initially was a scheduled to be discharged today. However, as per PT, he is still demonstrating a very unsteady, uncoordinated gait pattern and easily gets lightheadedness. Patient will be kept in the hospital for 1 more night. 12/09 Today patient is fine and does not have any complaints. He is happy to be released from hospital. PT feels patient is much stronger and better than yesterday and okay to discharge to home. Patient will be discharged home to follow with PCP and resource manager forester. he has been enrolled into a alcohol inpatient program in [place]. He will be discharged to his apartment. His friend will move to his apartment and support him until he leaves for [place]. Advised him not to drink alcohol. Call PCP for medical issues. Discharge diagnosis: Acute alcoholic intoxication Time Spent with Patient Time attestation: Total time spent providing and/or coordinating discharge services: EXAM Constitutional Vitals: Temp Pulse Resp BP Pulse Ox 97.7 F 64 16 198/166 94 12/10/19 08:01 12/10/19 08:01 12/10/19 08:01 12/10/19 08:01 12/10/19 08:01 Additional findings Additional findings: General - No acute distress Eyes - PERRLA, EOM intact ENT no rhinorrhea, no noticeable or palpable swelling, no redness or rash around throat or on face Neck supple, no JVD, no thyromegaly Respiratory: Lungs -clear, no wheezing or crackles. Cardiovascular - RRR no m/r/g, GI - Normal bowel sounds, no distended, soft. Extremeties - No edema, cyanosis or clubbing. no tremor. Hemo/lymphatic/immune no lymphadenopathy Neurological Alert and oriented x 3, no focal neurological deficits. Psychiatry flat affect Discharge Data Data Completed and Pending Labs on day of discharge: Labs from last 24 hours 12/10/19 12/10/19 05:05 05:05 WBC 5.7 RBC 3.97 L Hgb 12.0 L Hct 36.5 L MCV 91.9 MCH 30.2 MCHC 32.9 RDW 13.6 Plt Count 187 MPV 9.4 Gran % 50.0 Lymph % (Auto) 40.5 [place] % (Auto) 6.7 Eos % (Auto) 2.1 Baso % (Auto) 0.7 Gran # 2.85 Lymph # (Auto) 2.31 [place] # (Auto) 0.38 Eos # (Auto) 0.12 Baso # (Auto) 0.04 Sodium 140 Potassium 3.8 Chloride 106 Carbon Dioxide 22 Anion Gap 12.0 BUN 14 Creatinine 1.0 GFR Calculation 84 Glucose 111 H Calcium 8.8 Total Bilirubin 0.3 AST 36 ALT 46 H Alkaline Phosphatase 70 Total Protein 5.7 L Albumin 3.6 Globulin 2.1 L Albumin/Globulin Ratio 1.7 Preliminary micro results at discharge 12/07/19 14:28 Blood Culture - Preliminary Blood 12/07/19 14:10 Blood Culture - Preliminary Blood Discharge Plan Patient/Caregiver Discharge Instructions Activity: increase activity as tolerated Diet: Regular Diet Prescriptions: New Folbee Plus 5 mg Tablet 1 tab PO DAILY Qty: 30 RF: 0 amlodipine 5 mg Tablet 2.5 mg PO DAILY Qty: 30 RF: 0 metoprolol tartrate 25 mg Tablet 12.5 mg PO BID Qty: 60 RF: 0 thiamine mononitrate (vit B1) 100 mg Tablet 100 mg PO DAILY Qty: 30 RF: 0 Continued clonidine HCl 0.1 MG tablet 0.1 mg PO BID RF: 0 mirtazapine 45 mg Tablet 45 mg PO QHS RF: 0 melatonin 3 mg Tablet 3 mg PO HS PRN (Reason: Insomnia) RF: 0 Discontinued atenolol 25 mg Tablet 25 mg PO QHS RF: 0 Other Ambulatory Orders: Complete Blood Count (Routine) Timeframe: 3 Days Facility: [facility] - Location: Laboratory Ordered By: Loree Vaca Comprehensive Metabolic Panel (Routine) Timeframe: 3 Days Facility: [facility] - Location: Laboratory Ordered By: Loree Vaca Follow Up Plan Follow up with: No,PCP [Primary Care Provider] - Unknown [Outside] (f/u with pcp ([facility]) in 3 days and cardiology within one week. ) Patient Disposition: Home, Self-Care Discharge Orders: Discharge Order (Routine); Ordered 12/10/19 Ordered By: Loree Vaca QUALITY VTE Deep Vein Thrombosis/Pulmonary Embolism Present on Admission: No
[2019-12-10] MEDS: 0.45 % SODIUM CHLORIDE 1,000 ML IV SCH (12:59)
== END 2019-12-10 14:00 | disposition home or self-care (01) | DRG 897 ==
LOC: ED 10:10 → ICU 18:27
PROVIDERS: ADMIT Internal Medicine; ATTEND Internal Medicine